=== PATIENT | female | born 1995 | race Two or more races ===

== ENCOUNTER → 2017-10-30 | Outpatient (CLI) | payer OTHER | END | disposition home or self-care (01) | LOC: ECHO 07:53 | DX: I34.0 Nonrheumatic mitral (valve) insufficiency (principal) | CPT/HCPCS: 93306 ==

== ENCOUNTER → 2018-02-25 | Outpatient (CLI) | payer OTHER | END | disposition home or self-care (01) | LOC: US 07:15 | DX: N83.292 Other ovarian cyst, left side (principal); N83.291 Other ovarian cyst, right side; E55.9 Vitamin D deficiency, unspecified | CPT/HCPCS: 76856 ==